=== PATIENT | female | born 1970 | race Caucasian/White ===

== ENCOUNTER 2019-11-05 07:30 | Inpatient (IN) ==
[2019-10-30 13:48] LABS: Appearance,Urine CLEAR; Bilirubin,Urine NEG (NEG); Color,Urine STRAW; Culture Indicated,Urine NO; Glucose,Urine (UA) NEGATIVE (NEG); Ketones,Urine NEG (NEG); Leukocyte Esterase,Urine NEG /uL (NEG); Nitrate,Urine NEG (NEG); Protein,Urine NEG (NEG); Specific Gravity,Urine 1.008 (1.000-1.035); Urine Blood NEG mg/dL (<0.03); Urobilinogen,Urine NEG (NEG)
[2019-10-30 14:28] LABS: Basophils # (Auto) 0.03 K/mcL (0.00-0.30); Basophils % (Auto) 0.5 % (0.0-2.0); Eosinophils % (Auto) 1.7 % (0.0-7.0); Granulocytes % (Auto) 67.9 % (38.0-78.0); Hematocrit 37.6 % (34.1-44.9); Hemoglobin 12.5 g/dL (11.2-15.7); Lymphocytes # (Auto) 1.25 K/mcL (1.50-4.80); Lymphocytes % (Auto) 21.6 % (15.5-49.0); Mean Cell Volume 92.6 fL (80.0-100.0); Mean Corpuscular HGB Conc 33.2 g/dL (31.0-36.0); Mean Platelet Volume 9.2 fL (7.4-10.4); Monocytes # (Auto) 0.48 K/mcL (0.10-0.90); Monocytes % (Auto) 8.3 % (1.0-12.0); Platelet Count 321 K/mcL (140-440); RBC 4.06 M/mcL (3.59-5.38); Red Cell Distribution Width 12.9 % (11.5-14.5); WBC 5.8 K/mcL (4.50-11.00)
[2019-10-30 14:33] LABS: Estimated Average Glucose(eAG) 85 mg/dL; Hemoglobin A1C 4.6 % HGB (4.0-6.0)
[2019-10-30 14:55] LABS: ALT/SGPT 12 U/l (0-40); AST/SGOT 19 U/l (0-37); Albumin/Globulin Ratio 1.4 (1.0-2.3); Alkaline Phosphatase 70 U/L (39-117); Bilirubin,Total 0.4 mg/dL (0.0-1.0); Blood Urea Nitrogen 11 mg/dl (6-20); Calcium 9.3 mg/dl (8.6-10.4); Carbon Dioxide 24 mmol/L (22-30); Chloride 104 mmol/L (96-108); Globulin 2.8 gm/dL (2.2-3.7); Glomerular Filtration Rate 86; Glucose 86 mg/dL (70-105)
[~2019-11-05 07:30] MED LIST: CELECOXIB 200 MG CAPSULE PO SCH; IPRATROPIUM/ALBUTEROL 3 ML AMPUL.NEB NEB PRN; PREGABALIN 75 MG CAPSULE PO SCH; SCOPOLAMINE 1 PATCH PATCH TOPICAL PRN; oxyCODONE 10 MG TAB.ER.12H PO SCH
[2019-11-05] MEDS: ceFAZolin 2 GM in DEXTROSE 5% IN WATER 50 ML IV SCH ×2 (10:09→10:20)
[2019-11-05] MEDS ORDERED: MIDAZOLAM 2 MG/2 ML VIAL ONE (11:30)
[2019-11-05] MEDS ORDERED: PHENYLEPHRINE 10 MG/ML VIAL ONE (11:30)
[2019-11-05] MEDS ORDERED: KETAMINE 100 MG/ML ML ONE (11:30)
[2019-11-05] MEDS ORDERED: fentaNYL 100 MCG/2 ML VIAL IV ONE (11:30)
[2019-11-05] MEDS ORDERED: TRANEXAMIC ACID 1,000 MG/10 ML VIAL IV ONE ×2 (11:30→13:01)
[2019-11-05] MEDS ORDERED: GLYCOPYRROLATE 0.2 MG/ML VIAL IV ONE (11:30)
[2019-11-05] MEDS ORDERED: ONDANSETRON 4 MG/2 ML VIAL ONE (11:30)
[2019-11-05] MEDS ORDERED: DEXAMETHASONE 10 MG/ML VIAL ONE (11:30)
[2019-11-05] MEDS ORDERED: IPRATROPIUM/ALBUTEROL 3 ML AMPUL.NEB NEB PRN (12:34)
[2019-11-05] MEDS ORDERED: ACETAMINOPHEN 1,000 MG/100 ML BOTTLE IV ONE (12:34)
[2019-11-05] MEDS ORDERED: METHOCARBAMOL 1,000 MG/10 ML VIAL IV PRN (12:34)
[2019-11-05] MEDS ORDERED: LACTATED RINGERS 250 ML IV PRN (12:34)
[2019-11-05] MEDS ORDERED: MEPERIDINE 25 MG/ML SYRINGE IV PRN (12:34)
[2019-11-05] MEDS ORDERED: METOPROLOL TARTRATE 5 MG/5 ML VIAL IV PRN (12:34)
[2019-11-05] MEDS ORDERED: HYDROmorphone 0.5 MG/0.5 ML SYRINGE IV PRN (12:34)
[2019-11-05] MEDS ORDERED: NALOXONE HCL 0.4 MG/ML VIAL IV PRN (12:34)
[2019-11-05] MEDS ORDERED: LABETALOL 5 MG/ML ML IV PRN (12:34)
[2019-11-05] MEDS ORDERED: FLUMAZENIL 0.1 MG/ML ML IV PRN (12:34)
[2019-11-05] MEDS ORDERED: fentaNYL 100 MCG/2 ML VIAL IV PRN (12:34)
[2019-11-05] MEDS ORDERED: LACTATED RINGERS 1,000 ML IV SCH (12:45)
--- NOTE | 2019-11-05 13:00 | Brief Operative Note ---
Brief Operative Note Date of procedure: 11/05/19 Pre-op diagnosis: Left hip severe DJD Post-op diagnosis: same Procedure: Left anterior total hip arthroplasty Grafts/Implants: Yes (Depuy Actis 6 hi stem, +5 32 delta head, 52 cup, neutral altrx liner) Anesthesia: spinal and GLMA Findings: severe arthritis Complications: none Surgeon: Toby Luu Senior Clinical Research Associate: Anthony Manning Estimated blood loss (cc): 250 Specimens Removed/Pathology: none sent Condition: stable Disposition: PACU
[2019-11-05] MEDS ORDERED: FLEETS ADULT ENEMA PR PRN (13:01)
[2019-11-05] MEDS ORDERED: HYDROmorphone 1 MG/ML SYRINGE IV PRN (13:01)
[2019-11-05] MEDS ORDERED: POLYETHYLENE GLYCOL 3350 17 GM PACKET PO PRN (13:01)
[2019-11-05] MEDS ORDERED: BISACODYL 10 MG SUPP.RECT PR PRN (13:01)
[2019-11-05] MEDS ORDERED: BENZOCAINE/MENTHOL 1 LOZENGE PO PRN (13:01)
[2019-11-05] MEDS ORDERED: KETOROLAC 30 MG/ML VIAL IV PRN (13:01)
[2019-11-05] MEDS ORDERED: ONDANSETRON 4 MG/2 ML VIAL IV PRN (13:01)
[2019-11-05] MEDS ORDERED: MAGNESIUM HYDROXIDE 30 ML ORAL.SUSP PO PRN (13:01)
--- NOTE | 2019-11-05 13:39 | XRay Report ---
CLINICAL INFORMATION: left anterior hip arthroplasty COMPARISON: None. FINDINGS: Digital images from the OR show left total hip prostheses in anatomic alignment. No osseous abnormality. IMPRESSION: Total hip prostheses in anatomic alignment. Interpreted and Authenticated by: Edis Sorto 11/05/19
--- NOTE | 2019-11-05 13:42 | Operative Note ---
DATE OF OPERATION: 11/05/2019 PREOPERATIVE DIAGNOSIS: Left hip severe osteoarthritis. POSTOPERATIVE DIAGNOSIS: Left hip severe osteoarthritis. PROCEDURE PERFORMED: Left anterior total hip arthroplasty placing a size 6 high offset femoral stem; a +5, 32 mm delta ceramic head ball; a 52 no-hole [place] cup with a neutral Altrx liner. SURGEON: Toby Luu M.D. CV[facility] NURSE: Theodore Manning PA-C. The PA's assistance was required for the safe and efficient completion of the entire case. This provider's expertise and technical skill were required throughout the case. The PA assisted with preoperative coordination, intraoperative retraction, wound closure, dressing and splint application, as well as postoperative documentation and care coordination. ANESTHESIA: Spinal plus general. DRAINS: None. SPECIMENS: Femoral head which was discarded. BLOOD LOSS: 250 mL. COMPLICATIONS: None. POSTOPERATIVE CONDITION: Stable. INDICATIONS FOR SURGERY: This is a 49-year-old female who has had longstanding, progressive worsening, severe left hip pain. Radiographs showed severe [id number] osteoarthritis with large osteophytes. Post-procedure showed good overall component position, equalization of offset, and mild limb lengthening. PROCEDURE IN DETAIL: The patient had been seen preoperatively. Informed consent obtained after discussion of risks and benefits of surgery. Risks including, but not limited to, bleeding; infection; injury to nerves, blood vessels, and other surrounding structures; anesthetic risks; incomplete or no resolution of symptoms; leg length discrepancy; dislocation; fracture; DVT and pulmonary embolus risks; and the possibility of needing further revision joint surgery. The patient understood these risks and wished to proceed. Correct operative site was marked and then spinal anesthesia given. The patient was then taken to the operating room and LMA general given. The patient was carefully transferred to the fracture table and then the operative hip was carefully prepped and draped in normal sterile fashion. Timeout was performed verifying patient name, operative site, and plan. Ioban was used to cover all skin surfaces. A standard anterior approach incision was made with a scalpel through skin and subcutaneous tissue. Hemostasis was obtained with Bovie cautery. Careful blunt dissection was taken down on the tensor fascia and then this was undermined circumferentially. IrriSept was irrigated and a ring retractor placed. Tensor fascia was incised in line with muscle fibers and then careful blunt dissection taken medial to the muscle belly. Blunt cobra retractors were placed on the superior and inferior femoral neck and then circumflex vessels were coagulated and cut and vastus fascia split distally. Anterior capsulectomy was performed and then the capsule releases. Corkscrew was placed in the femoral head. Prior to placement of the corkscrew we did take x-rays for joint point. Once a corkscrew was placed we used fluoroscopy to identify our approximate neck cut trajectory and then our femoral neck was cut with oscillating tip saw. Femoral head was removed and the acetabulum exposed. Labrum was excised circumferentially as well as soft tissue from the floor. We then irrigated with IrriSept. We then began sequentially reaming until 1 mm smaller than the final implant. We then opened the acetabular component. IrriSept was irrigated, after a minute pulse lavaged with saline and then the cup was impacted using the [id number]. Joint point was used to verify satisfactory cup position. A center hole cover was placed and then the acetabular liner was carefully aligned and impacted and carefully verified to be fully seated. We then released traction. The leg was externally rotated and released capsule around the medial neck. The leg was then extended and adducted. Capsule was released out towards greater trochanter and then the proximal femur was exposed. Box osteotome was used to gain canal entry and an awl was used to identify canal trajectory. Rongeur and rasp were used to lateralize and then we began sequentially broaching up to the final size. We calcar planed down onto the broach and then the neck trial and head ball were placed. The hip was reduced. Fluoro was brought in and x-rays taken, joint point was used to verify satisfactory position. We then re-dislocated and removed the trial implants. Definitive implants were opened. We then irrigated the femoral canal with IrriSept again, after a minute pulse lavaged with saline. The final stem was impacted and seated. We then opened the head ball. The stem was carefully cleaned and dried and the head ball was impacted. We then reduced the hip with satisfactory tension. Final fluoro images were taken and saved. We irrigated the joint with IrriSept, after a minute pulse lavaged with saline again and then closed the tensor fascia with two running #1 Vicryls, one running proximal, one running distal and a ring retractor was removed. Final IrriSept irrigation was done, after a minute final pulse lavage, and then fat was tacked to fascia with Vicryl and then 2-0 Monocryl for subcutaneous and lorraine for skin. Xeroform and sterile dressing were applied. The patient was then awakened, extubated, and transferred to recovery in stable condition. MARK:shirley Job ID: [id number] Doc ID: [id number] Toby Luu MD
--- NOTE | 2019-11-05 14:15 | XRay Report ---
CLINICAL INFORMATION: Post-Op Total Hip COMPARISON: None. FINDINGS: Left total hip prostheses is anatomically aligned. Moderate degenerative change seen in the right hip and both SI joints. No osseous abnormality. Soft tissue swelling over the surgical site - as expected IMPRESSION: Left total hip prostheses is anatomically aligned. Moderate right hip degeneration Interpreted and Authenticated by: Edis Sorto 11/05/19
[2019-11-05] MEDS: 0.9 % SODIUM CHLORIDE 1,000 ML IV SCH ×2 (14:42→23:01)
[2019-11-05] MEDS: 0.9 % SODIUM CHLORIDE 10 ML SYRINGE IV SCH ×2 (15:50→21:08)
[2019-11-05] MEDS: ceFAZolin 1 GM VIAL IV SCH (18:01)
[2019-11-05] MEDS ORDERED: SENNOSIDES 1 TABLET PO SCH (21:00)
[2019-11-05] MEDS: DOCUSATE SODIUM 100 MG CAPSULE PO SCH (21:03)
[2019-11-05] MEDS: ASPIRIN 81 MG TAB.CHEW PO SCH (21:03)
[2019-11-06] MEDS: ceFAZolin 1 GM VIAL IV SCH (02:08)
[2019-11-06] MEDS: oxyCODONE/APAP 5/325MG TABLET PO PRN ×2 (02:23→11:09)
[2019-11-06] MEDS: 0.9 % SODIUM CHLORIDE 10 ML SYRINGE IV SCH (05:30)
[2019-11-06] MEDS: 0.9 % SODIUM CHLORIDE 1,000 ML IV SCH (05:30)
--- NOTE | 2019-11-06 07:48 | Discharge Summary ---
Discharge Provider Provider Patient information: Note initiated : 11/06/19 at 7:47 am Service Date, if different from initiated Date: [] Patient: Fely Marks 49 y/o F admitted on 11/05/19 for Left Total Hip Arthroplasty Anterior . Chief Complaint: no c/o. Date of admission: 11/05/19 08:07 Discharge date: 11/06/19 COURSE Hospital Course Hospital course: Pt was admitted for a L SG. Discharged to home post-op day 1 Discharge diagnosis: L hip OA Time Spent with Patient Time attestation: Total time spent providing and/or coordinating discharge services: Physical Examination Narrative Exam Narrative: Bandages c/d/i NVI-distal Exam Clean and dry: Yes Weight bearing status: as tolerated Discharge Instructions - SG Patient Instructions Total Hip Protocol: Follow activity instructions as provided by Physical Therapy. Discharge Plan Patient/Caregiver Discharge Instructions Activity: increase activity as tolerated Diet: Regular Diet Prescriptions: New aspirin 81 mg tablet,delayed release (DR/EC) 81 mg PO BID Qty: 60 RF: 0 hydrocodone-acetaminophen 7.5-325 mg tablet 1 - 2 tab PO Q4-6HP PRN (Reason: pain) Qty: 60 RF: 0 Continued ascorbic acid (vitamin C) [Vitamin C] 1,000 mg Tablet 500 mg PO QDAY RF: 0 cholecalciferol (vitamin D3) [Vitamin D3] 25 mcg (1,000 unit) Capsule 25 mcg PO QDAY RF: 0 Discontinued ferrous sulfate 325 mg (65 mg iron) Tablet 325 mg PO TID RF: 0 Other Ambulatory Orders: Physical Therapy at Discharge - SG (Routine) Location: None Selected Ordered By: Anthony Ptaiño (ONCE) Location: None Selected Ordered By: Anthony Manning Follow Up Plan Follow up with: Anthony Manning PA-C [[employer]] - 11/20/19 10:00 am Patient Disposition: Home, Self-Care Rehab Potential: Good Overall status at discharge: patient is progressing back to baseline Discharge Orders: Discharge Order (Routine); Ordered 11/06/19 Ordered By: Anthony Manning Pending Pending Pending: Resuscitation Status Full Code Diet Regular Diet Start Sun 2 1302 Aspirin (Aspirin) 81 mg PO BID ARPAN Last Admin: 11/05/19 21:03 Dose: 81 mg Documented by: CAITLYN Docusate Sodium (Colace) 100 mg PO BID [facility] Last Admin: 11/05/19 21:03 Dose: 100 mg Documented by: CAITLYN Sodium Chloride (Sodium Chloride 0.9%) 1,000 mls @ 125 mls/hr IV .Q8H [facility] Last Admin: 11/06/19 05:30 Dose: Not Given Documented by: Admin: 11/05/19 23:01 Dose: 125 mls/hr Documented by: Infusion: 11/05/19 22:42 Dose: 125 mls/hr Documented by: Admin: 11/05/19 14:42 Dose: 125 mls/hr Documented by: AMY Ketorolac Tromethamine (Toradol) 30 mg IV Q6HP PRN; Protocol PRN Reason: Per Pain Protocol Stop: 11/07/19 13:03 Last Admin: 11/05/19 23:56 Dose: 30 mg Documented by: CAITLYN Oxycodone/Acetaminophen (Percocet 5-325 Mg) 1 - 2 tab PO Q4HP PRN; Protocol PRN Reason: Per Pain Protocol Last Admin: 11/06/19 02:23 Dose: 1 tab Documented by: CAITLYN Senna (Senokot) 2 tab PO HS [facility] Last Admin: 11/05/19 21:03 Dose: 2 tab Documented by: CAITLYN Sodium Chloride (Saline Flush) 10 ml IV Q8 [facility] Last Admin: 11/06/19 05:30 Dose: Not Given Documented by: Admin: 11/05/19 21:08 Dose: 10 ml Documented by: Admin: 11/05/19 15:50 Dose: 10 ml Documented by: AMY Shift Summary 11/06/19 03:30 Shift Summary by Danuta Martin Patient alert and oriented x4. Slept on and off this shift. Medicated for pain with IV Toradol x1 and Pecocet 1 tab x1. Patient denies any nausea or light- headedness this shift. Patient passed out yesterday with PT but none this shift. Up voided in the bathroom, 200 mls at a time. Last PVR at 0230H 353 mls. Up with FWW, gait belt and standby assist. Ambulated in hallway 575 ft this shift. Left hip silver dressing CDI. Ice pack in place. EVELYN pumps on both feet. IV on LFA, will saline lock at end of shift. BP 90's/60's mmHg, pt asymptomatic. Will update at bedside report. Initialized on 11/06/19 03:30 - END OF NOTE
[2019-11-06] MEDS: ASPIRIN 81 MG TAB.CHEW PO SCH (08:13)
[2019-11-06] MEDS: DOCUSATE SODIUM 100 MG CAPSULE PO SCH (08:14)
[2019-11-06] MEDS ORDERED: VITAMIN D3 1,000 UNIT TABLET PO SCH (09:00)
[2019-11-06] MEDS ORDERED: ASCORBIC ACID 500 MG TABLET PO SCH (09:00)
== END 2019-11-06 12:00 | disposition home or self-care (01) | DRG 470 ==
LOC: EDSTATUS 07:30 → MEDSUR 08:07
PROVIDERS: ADMIT Orthopaedic Surgery; ATTEND Orthopaedic Surgery